=== PATIENT | female | born 1985 | race Hispanic/Latino ===

== ENCOUNTER 2021-01-30 13:31 | Emergency (ER) | payer OTHER ==
[2021-01-30 16:53] LABS: ALT (SGPT) 23 U/L (8-55); AST (SGOT) 23 U/L (5-34); Albumin 3.9 g/dL (3.5-5.0); Alkaline Phosphatase 84 U/L (40-110); Anion Gap 13 mmol/L (10-20); BUN (Urea Nitrogen) 6 mg/dL (7.0-18.7); Bilirubin, Total 0.4 mg/dL (0.2-1.2); Calc. Creatinine Clearance 0 mL/min (70-130); Calcium 9.6 mg/dL (7.8-10.44); Carbon Dioxide 22 mmol/L (22-29); Chloride 105 mmol/L (98-107); Glucose 75 mg/dL (70-105); Potassium 4.1 mmol/L (3.5-5.1); Protein, Total 7.9 g/dL (6.0-8.3); Sodium 136 mmol/L (136-145)
[2021-01-30 17:21] LABS: Bilirubin Neg (Negative); Blood, Urine 10 (Negative); Clarity Cloudy (Clear); Glucose, Urine (Dipstick) Normal (Negative); Ketone, Urine 150 mg/dL (Negative); Leukocyte 500 (Negative); Nitrite Negative (Negative); Protein, Urine (Dipstick) Negative (Neg-Trace); Urobilinogen Normal mg/dL (Less than 2)
[2021-01-30] MEDS ORDERED: Acetaminophen 500 MG TAB ONE (17:34)
[2021-01-30 17:44] LABS: Bacteria/HPF 1+ HPF (None Seen); RBC/HPF 0-3 HPF (0-3)
== END 2021-01-30 19:05 | disposition home or self-care (01) ==
LOC: CSHERS 13:31
DX: O23.42 Unspecified infection of urinary tract in pregnancy, second trimester (principal); O99.332 Smoking (tobacco) complicating pregnancy, second trimester; F17.200 Nicotine dependence, unspecified, uncomplicated
CPT/HCPCS: 36415; 76815; 80053; 81003; 81015; 84702; 86900; 86901; 87077; 87086

== ENCOUNTER 2021-07-11 08:45 | Outpatient (CLI) | payer OTHER ==
[2021-07-11 19:49] LABS: SARS-CoV-2 PCR by NAA DETECTED (NotDetected)
== END 2021-07-11 08:46 | disposition home or self-care (01) ==
LOC: CSHLAB 08:45
PROVIDERS: ATTEND Obstetrics & Gynecology
DX: U07.1 COVID-19 (principal)
CPT/HCPCS: U0003; U0005

== ENCOUNTER 2021-07-14 06:04 | Inpatient (IN) | payer OTHER ==
[~2021-07-14 06:04] MED LIST: Bupivacaine 0.25% HCL 30 ML VIAL ONE
[2021-07-14] MEDS ORDERED: Zolpidem Tartrate 5 MG TAB PO PRN ×2 (06:37→13:06)
[2021-07-14] MEDS ORDERED: Ibuprofen 800 MG TAB PO PRN (06:37)
[2021-07-14] MEDS ORDERED: Diphenoxylate HCl/Atropine Tablet PO PRN ×2 (06:37)
[2021-07-14] MEDS ORDERED: Promethazine HCl 25 MG/ML VIAL IM PRN ×3 (06:37→13:06)
[2021-07-14] MEDS ORDERED: hydrALAZINE 20 MG/ML VIAL SLOW IVP PRN ×2 (06:37→13:06)
[2021-07-14] MEDS ORDERED: Methylergonovine 0.2 MG/ML VIAL IM PRN ×2 (06:37→13:06)
[2021-07-14] MEDS ORDERED: Misoprostol 200 MCG TAB PR PRN (06:37)
[2021-07-14] MEDS ORDERED: Ondansetron PF 4 MG/2 ML Vial IVP PRN ×3 (06:37→13:06)
[2021-07-14] MEDS ORDERED: Lidocaine 1% (PF) 30 ML VIAL SC PRN (06:37)
[2021-07-14] MEDS ORDERED: Docusate 100 MG CAP PO PRN (06:37)
[2021-07-14] MEDS ORDERED: HYDROcodone/Acetaminophen 5/325 mg Tablet PO PRN (06:37)
[2021-07-14] MEDS ORDERED: Butorphanol Tartrate 1 MG/ML VIAL SLOW IVP PRN (06:37)
[2021-07-14] MEDS ORDERED: Acetaminophen 500 MG TAB PO PRN (06:37)
[2021-07-14] MEDS ORDERED: Carboprost 250 MCG/ML AMP IM PRN (06:37)
[2021-07-14] MEDS ORDERED: Lactated Ringer's 1,000 ML IV SCH (06:45)
[2021-07-14] MEDS ORDERED: NS w/ Oxytocin 30 units 500 ML IV SCH ×2 (06:45→13:06)
[2021-07-14 07:15] LABS: Hemoglobin 11.6 g/dL (12.0-15.5); Mean Corpuscular HGB CONC 32.7 g/dL (32.0-36.0); Mean Corpuscular Hemoglobin 25.6 pg (27.0-33.0); Mean Corpuscular Volume 78.2 fl (81.6-98.3); Mean Platelet Volume 11.3 fl (7.4-10.4); Platelet Count 192 10x3/uL (150-450); Red Blood Cell (RBC) Count 4.54 10x6/uL (3.90-5.03)
[2021-07-14] MEDS ORDERED: Fentanyl 2 mcg/Bup 0.1% Cadd 100 ML ONE (07:26)
[2021-07-14 07:47] LABS: Syphilis Antibody Nonreactive (Nonreactive); Syphilis Antibody Index 0.13 S/CO (<1.00 Non-Reactive)
[2021-07-14 07:51] LABS: Hep B Surf Ag Non-Reactive S/CO (NonReactive)
[2021-07-14 07:52] LABS: HBSAg Index 0.19 S/CO (0-0.99)
[2021-07-14] MEDS ORDERED: Naloxone HCl 0.4 mg/ml Vial IVP PRN ×2 (08:33)
[2021-07-14] MEDS ORDERED: ePHEDrine Sulfate 50 MG/10 ML VIAL SLOW IVP PRN (08:33)
[2021-07-14] MEDS ORDERED: Hydrocerin (Eucerin) Cream 120 gm Jar TOP PRN (08:33)
[2021-07-14] MEDS ORDERED: Acetaminophen 325 MG TAB PO PRN (08:33)
[2021-07-14] MEDS ORDERED: Lactated Ringer's 500 ML IV PRN (08:33)
[2021-07-14] MEDS ORDERED: diphenhydrAMINE 50 MG/ML VIAL IVP PRN (08:33)
[2021-07-14] MEDS ORDERED: Fentanyl 2 mcg/Bupivacaine 0.1% Cassette 100 ML EPIDURAL SCH (08:45)
[2021-07-14] MEDS ORDERED: Communication Order-Pharmacy FS SCH (08:45)
[2021-07-14 09:58] VITALS: BMI 39.6
[2021-07-14] MEDS ORDERED: Misoprostol 200 MCG TAB VAG PRN (13:06)
[2021-07-14] MEDS ORDERED: diphenhydrAMINE 25 MG CAP PO PRN (13:06)
[2021-07-14] MEDS ORDERED: Varicella virus, LIVE 0.5 ML VIAL SC ONE (13:06)
[2021-07-14] MEDS ORDERED: Preparation H Ointment 28 GM TUBE PR PRN (13:06)
[2021-07-14] MEDS ORDERED: Boostrix 0.5 ML (Tdap) VIAL IM ONE (13:06)
[2021-07-14] MEDS ORDERED: Measles/Mumps/Rubella 10 MCG/0.5 ML VIAL SC ONE (13:06)
[2021-07-14] MEDS ORDERED: Bisacodyl 10 MG SUPP PR PRN (13:06)
[2021-07-14] MEDS ORDERED: Lanolin Ointment 7 GM TUBE TOP PRN (13:06)
[2021-07-14] MEDS ORDERED: Milk Of Magnesia 30 ML UDCUP PO PRN (13:06)
[2021-07-14] MEDS ORDERED: Benzocaine-Menthol 82.5 ML CAN TOP PRN (13:06)
[2021-07-14] MEDS: Ibuprofen 800 MG TAB PO SCH ×2 (15:45→21:16)
[2021-07-14] MEDS: Ferrous Sulfate 325 MG TAB PO SCH (15:45)
[2021-07-14] MEDS: HYDROcodone/Acetaminophen 5/325 mg Tablet PO PRN ×2 (17:30→23:10)
[2021-07-14] MEDS: Docusate 100 MG CAP PO SCH (21:16)
[2021-07-15] MEDS: Ibuprofen 800 MG TAB PO SCH (05:08)
[2021-07-15 05:13] LABS: Hemoglobin 10.6 g/dL (12.0-15.5); Mean Corpuscular HGB CONC 32.2 g/dL (32.0-36.0); Mean Corpuscular Hemoglobin 25.5 pg (27.0-33.0); Mean Corpuscular Volume 79.1 fl (81.6-98.3); Mean Platelet Volume 11.4 fl (7.4-10.4); Platelet Count 158 10x3/uL (150-450); RBC Distribution Width 14.2 % (11.5-14.5); Red Blood Cell (RBC) Count 4.16 10x6/uL (3.90-5.03); White Blood Cell (WBC) Count 9.6 10x3/uL (3.5-10.5)
[2021-07-15] MEDS: Docusate 100 MG CAP PO SCH (07:48)
[2021-07-15] MEDS: Ferrous Sulfate 325 MG TAB PO SCH (07:48)
[2021-07-15] MEDS: HYDROcodone/Acetaminophen 5/325 mg Tablet PO PRN ×2 (07:56→12:40)
[2021-07-15] MEDS ORDERED: Prenatal Vitamin 1 TAB PO SCH (09:00)
[2021-07-15 11:42] VITALS: BP 112/59; TEMP 98.1
== END 2021-07-15 14:37 | disposition home or self-care (01) | DRG 807 ==
LOC: CSHLD/OP 06:04 → CSHLD 06:34 → CSHANTE 12:50
PROVIDERS: ADMIT Obstetrics & Gynecology; ATTEND Obstetrics & Gynecology
PROC: 10E0XZZ Delivery of Products of Conception, External Approach (ICD-10-PCS; principal; 2021-07-14)
PROC: 0HQ9XZZ Repair Perineum Skin, External Approach (ICD-10-PCS; 2021-07-14)
DX: O70.0 First degree perineal laceration during delivery (principal); Z37.0 Single live birth; Z3A.39 39 weeks gestation of pregnancy; Z91.012 Allergy to eggs
CPT/HCPCS: 36415; 51702; 85027; 86762; 86780; 86850; 86900; 86901; 87340; S0020; U0003; U0005

== ENCOUNTER 2021-07-21 17:57 | Emergency (ER) | payer OTHER ==
[2021-07-21] MEDS ORDERED: Acetaminophen 500 MG TAB ONE (18:18)
[2021-07-21] MEDS ORDERED: Ibuprofen 200 MG TAB ONE (18:18)
[2021-07-21 19:05] LABS: Bilirubin Neg (Negative); Blood, Urine 250 (Negative); Clarity Clear (Clear); Glucose, Urine (Dipstick) Normal (Negative); Ketone, Urine Negative (Negative); Leukocyte 500 (Negative); Nitrite Negative (Negative); Protein, Urine (Dipstick) Negative (Neg-Trace); Specific Gravity, Urine 1.005 (1.002-1.036); Urobilinogen Normal mg/dL (Less than 2); pH, Urine 6.5 (5.0-9.0)
[2021-07-21 19:13] LABS: Bacteria/HPF 2+ HPF (None Seen); RBC/HPF 0-3 HPF (0-3); Squamous Epithelial 0-3 HPF (0-3); Transitional Epithelial 0-3 HPF (None Seen)
== END 2021-07-21 20:00 | disposition home or self-care (01) ==
LOC: CSHERS 17:57
DX: N30.00 Acute cystitis without hematuria (principal); F17.200 Nicotine dependence, unspecified, uncomplicated
CPT/HCPCS: 71045; 81003; 81015; 87077; 87086; 87186

== ENCOUNTER 2023-02-26 18:15 | Emergency (ER) | payer OTHER ==
[2023-02-26 19:24] LABS: ALT (SGPT) 60 U/L (8-55); AST (SGOT) 51 U/L (5-34); Albumin 4.2 g/dL (3.5-5.0); Alkaline Phosphatase 109 U/L (40-110); Anion Gap 16 mmol/L (10-20); BUN (Urea Nitrogen) 20 mg/dL (7.0-18.7); Bilirubin, Total 0.3 mg/dL (0.2-1.2); Calc. Creatinine Clearance 0 mL/min (70-130); Calcium 8.9 mg/dL (7.8-10.44); Carbon Dioxide 20 mmol/L (22-29); Chloride 104 mmol/L (98-107); Estimated GFR 102; Globulin 3.5 g/dL (2.4-3.5); Glucose 99 mg/dL (70-105); Potassium 4.4 mmol/L (3.5-5.1); Protein, Total 7.7 g/dL (6.0-8.3); Sodium 136 mmol/L (136-145)
[2023-02-26] MEDS ORDERED: Ketorolac Tromethamine 30 MG/ML VIAL ONE (19:29)
[2023-02-26 19:54] LABS: Bilirubin Neg (Negative); Blood, Urine Negative (Negative); Clarity Clear (Clear); Glucose, Urine (Dipstick) Normal (Negative); Ketone, Urine Negative (Negative); Leukocyte Negative (Negative); Nitrite Negative (Negative); Protein, Urine (Dipstick) Negative (Neg-Trace); Urobilinogen Normal mg/dL (Less than 2)
[2023-02-26 19:59] LABS: Pregnancy Test - Urine (BHCG) Negative (Negative); Pregu Control Background? CLEAR/WHITE (CLR/WHITE); Pregu Control Bar Appear? YES (CONTROL BAR)
[2023-02-26 20:06] LABS: Bacteria/HPF Rare-Few HPF (None Seen); CAUTI Indications for Culture Pelvic or flank pain; RBC/HPF 0-3 HPF (0-3); Squamous Epithelial None Seen HPF (0-3); WBC/HPF None Seen HPF (0-3)
[2023-02-26 20:08] LABS: #Basophils 0.1 10x3/uL (0.0-0.2); #Eosinphils 0.3 10x3/uL (0.0-0.5); #Monocytes 0.6 10x3/uL (0.0-1.1); %Basophils 0.9 % (0.0-2.0); %Eosinophils 2.8 % (0.0-6.0); %Lymphocytes 20.9 % (18.0-47.0); %Monocytes 5.7 % (0.0-10.0); %Neutrophils 68.9 % (40.0-75.0); Hematocrit 35.2 % (34.9-44.5); Mean Corpuscular HGB CONC 31.3 g/dL (32.0-36.0); Mean Corpuscular Hemoglobin 22.8 pg (27.0-33.0); Mean Platelet Volume 11.3 fl (7.4-10.4); Platelet Count 205 10x3/uL (150-450); RBC Distribution Width 16.1 % (11.5-14.5); Red Blood Cell (RBC) Count 4.82 10x6/uL (3.90-5.03); White Blood Cell (WBC) Count 10.2 10x3/uL (3.5-10.5)
[2023-02-26 20:08] LABS: Urine Culture Reflex No No
[2023-02-26 20:33] LABS: Anisocytosis SLIGHT = 6-15 cells (100X) (0-5/hpf); Macrocytosis SLIGHT = 6-15 cells (100X) (0-5/hpf); Microcytosis SLIGHT = 6-15 cells (100X) (0-5/hpf); Platelet Adequacy Comment Appears Adequate
== END 2023-02-26 20:50 | disposition home or self-care (01) ==
LOC: CSHERS 18:15
DX: R10.31 Right lower quadrant pain (principal)
CPT/HCPCS: 36415; 74176; 80053; 81001; 81025; 85025; 96374; J1885

== ENCOUNTER 2023-12-23 21:20 | Emergency (ER) | payer OTHER ==
[2023-12-23] MEDS ORDERED: Ibuprofen 200 MG TAB ONE (22:46)
[2023-12-23] MEDS ORDERED: HYDROcodone/Acetaminophen 5/325 mg Tablet ONE (22:46)
== END 2023-12-23 23:47 | disposition home or self-care (01) ==
LOC: CSHERS 21:20
DX: M79.642 Pain in left hand (principal); M79.645 Pain in left finger(s); F17.210 Nicotine dependence, cigarettes, uncomplicated

== ENCOUNTER 2025-02-16 11:18 | Emergency (ER) | payer OTHER, SELFPAY | END 2025-02-16 12:32 | disposition home or self-care (01) | LOC: CSHERS 11:18 | DX: J06.9 Acute upper respiratory infection, unspecified (principal); F17.210 Nicotine dependence, cigarettes, uncomplicated | CPT/HCPCS: 87428; 99283 ==